=== PATIENT | male | born 1975 | race Caucasian/White ===

== ENCOUNTER 2018-07-03 06:57 | Day surgery (SDC) | payer OTHER ==
[2018-07-03] MEDS ORDERED: ONDANSETRON 4 MG INJ IV (08:00)
[2018-07-03] MEDS ORDERED: FENTAnyl 50 MCG/ML VIAL (08:01)
[2018-07-03] MEDS ORDERED: PROPOFOL 20 ML ×3 (08:01→08:57)
== END 2018-07-03 11:29 | disposition home or self-care (01) ==
LOC: GIL 06:57
DX: Z12.11 Encounter for screening for malignant neoplasm of colon (principal); K64.8 Other hemorrhoids; K57.30 Diverticulosis of large intestine without perforation or abscess without bleeding; D12.6 Benign neoplasm of colon, unspecified
CPT/HCPCS: 45385; 88305